=== PATIENT | female | born 1950 | race African-American/Black ===

== ENCOUNTER 2023-01-21 10:31 | Inpatient (IN) | payer OTHER ==
[2023-01-21 12:20] LABS: BASO % 1.3 % (0-2.0); EOS % 5.7 % (0-4.5); HEMATOCRIT 19.8 % (32.4-45.2); LYMPH % 29.7 % (8-40); MCH 24.3 pg (25.7-33.7); MCHC 33.5 g/dl (32.0-36.0); MEAN CELL VOLUME 72.4 fl (80-96); MEAN PLT VOLUME 6.3 fl (7.5-11.1); MONO % 8.1 % (3.8-10.2); NEUT % 55.2 % (42.8-82.8); PLATELET COUNT 223 10^3/uL (134-434); RBC 2.73 M/mm3 (3.60-5.2); RDW 20.7 % (11.6-15.6)
[2023-01-21 12:28] LABS: INR 1.1 (0.83-1.09); PROTHROMBIN TIME (PATIENT) 12.7 SEC (9.7-13.0)
[2023-01-21 12:30] LABS: HEMOGLOBIN 6.6 GM/dL (10.7-15.3)
[2023-01-21 12:41] LABS: CHLORIDE 114 mmol/L (98-107); POTASSIUM 5.6 mmol/L (3.5-5.1); SODIUM 141 mmol/L (136-145)
[2023-01-21 12:43] LABS: CALCIUM 8.2 mg/dL (8.5-10.1)
[2023-01-21 12:44] LABS: ALBUMIN 3.2 g/dl (3.4-5.0); ANION GAP 8 mmol/L (4-13); BLOOD UREA NITROGEN 65.1 mg/dL (7-18); CO2 19 mmol/L (21-32); GLUCOSE,RANDOM 150 mg/dL (74-106)
[2023-01-21 12:47] LABS: SGOT/AST 21 U/L (15-37); SGPT/ALT 23 U/L (13-61)
[2023-01-21 12:48] LABS: BILIRUBIN,TOTAL 0.4 mg/dL (0.2-1); TOT PROT 6.4 g/dl (6.4-8.2)
[2023-01-21 12:50] LABS: ALK PHOS 55 U/L (45-117); CREATININE 7.5 mg/dL (0.55-1.3)
[2023-01-21 13:53] LABS: ANISOCYTOSIS 2+
[2023-01-21] MEDS ORDERED: SODIUM ZIRCONIUM CYCLOSILICATE (LOKELMA) 5 GM PACKET PO ONE (14:55)
[2023-01-21 15:14] LABS: IRON SERUM 52 ug/dL (50-175); TOTAL IRON BINDING CAPACITY 289 ug/dL (250-450)
[2023-01-21] MEDS: cloNIDine HCL 0.1 MG TABLET PO SCH ×2 (15:23→21:37)
[2023-01-21] MEDS: amLODIPine BESYLATE 10 MG TABLET (FP) PO SCH (15:24)
[2023-01-21] MEDS: SODIUM BICARBONATE 650 MG TABLET PO SCH (21:36)
[2023-01-21] MEDS: GABAPENTIN 300 MG CAPSULE PO SCH (21:36)
[2023-01-21] MEDS: ROSUVASTATIN CA 10 MG TABLET PO SCH (21:36)
[2023-01-21] MEDS: HEPARIN NA (PORCINE) 5,000 UNITS/ML 1ML VIAL SQ SCH (21:37)
[2023-01-21] MEDS ORDERED: ROSUVASTATIN CA 40 MG TABLET PO SCH ×2 (22:00)
[2023-01-22] MEDS: GABAPENTIN 300 MG CAPSULE PO SCH ×3 (06:19→22:49)
[2023-01-22 08:24] LABS: EOS % 5.4 % (0-4.5); HEMATOCRIT 20.1 % (32.4-45.2); LYMPH % 40.1 % (8-40); MCH 24.8 pg (25.7-33.7); MCHC 33.6 g/dl (32.0-36.0); MEAN CELL VOLUME 73.9 fl (80-96); MEAN PLT VOLUME 6.5 fl (7.5-11.1); NEUT % 44.5 % (42.8-82.8); PLATELET COUNT 183 10^3/uL (134-434); RBC 2.72 M/mm3 (3.60-5.2); RDW 21.4 % (11.6-15.6); WHITE BLOOD COUNT 4.5 K/mm3 (4.0-10.0)
[2023-01-22 08:32] LABS: POTASSIUM 5.8 mmol/L (3.5-5.1)
[2023-01-22 08:38] LABS: HEMOGLOBIN 6.7 GM/dL (10.7-15.3)
[2023-01-22 08:42] LABS: BLOOD UREA NITROGEN 65.9 mg/dL (7-18)
[2023-01-22 08:43] LABS: CALCIUM 8.3 mg/dL (8.5-10.1)
[2023-01-22 08:46] LABS: CREATININE 7.4 mg/dL (0.55-1.3)
[2023-01-22] MEDS: amLODIPine BESYLATE 10 MG TABLET (FP) PO SCH (09:34)
[2023-01-22] MEDS: HEPARIN NA (PORCINE) 5,000 UNITS/ML 1ML VIAL SQ SCH ×2 (09:34→22:49)
[2023-01-22] MEDS: cloNIDine HCL 0.1 MG TABLET PO SCH ×2 (09:34→22:49)
[2023-01-22] MEDS: SODIUM BICARBONATE 650 MG TABLET PO SCH ×2 (09:34→22:49)
[2023-01-22 13:30] LABS: PHOSPHOROUS 5.9 mg/dL (2.5-4.9)
[2023-01-22] MEDS: SODIUM ZIRCONIUM CYCLOSILICATE (LOKELMA) 5 GM PACKET PO SCH (13:31)
[2023-01-22] MEDS ORDERED: INSULIN (NOVOLOG) ASPART 100 UNITS/ML 10ML VIAL ONE (21:53)
[2023-01-22] MEDS: ROSUVASTATIN CA 10 MG TABLET PO SCH (22:49)
[2023-01-22] MEDS: FERROUS SO4 325 MG TABLET (FP) PO SCH (22:49)
[2023-01-22] MEDS: INSULIN SLIDING SCALE (NOVOLOG) 1 VIAL SQ SCH (22:50)
[2023-01-23] MEDS: GABAPENTIN 300 MG CAPSULE PO SCH ×4 (06:35→21:29)
[2023-01-23] MEDS: INSULIN SLIDING SCALE (NOVOLOG) 1 VIAL SQ SCH ×4 (07:22→22:08)
[2023-01-23 09:04] LABS: BASO % 1.3 % (0-2.0); EOS % 7.8 % (0-4.5); HEMATOCRIT 25.6 % (32.4-45.2); HEMOGLOBIN 8.3 GM/dL (10.7-15.3); LYMPH % 38.6 % (8-40); MCH 24.5 pg (25.7-33.7); MCHC 32.3 g/dl (32.0-36.0); MEAN CELL VOLUME 75.8 fl (80-96); MEAN PLT VOLUME 6.7 fl (7.5-11.1); MONO % 8.8 % (3.8-10.2); NEUT % 43.5 % (42.8-82.8); PLATELET COUNT 198 10^3/uL (134-434); RBC 3.37 M/mm3 (3.60-5.2); RDW 20.9 % (11.6-15.6); WHITE BLOOD COUNT 4.4 K/mm3 (4.0-10.0)
[2023-01-23] MEDS: SODIUM ZIRCONIUM CYCLOSILICATE (LOKELMA) 5 GM PACKET PO SCH (09:33)
[2023-01-23] MEDS: SODIUM BICARBONATE 650 MG TABLET PO SCH ×2 (09:34→21:29)
[2023-01-23] MEDS: FERROUS SO4 325 MG TABLET (FP) PO SCH ×2 (09:34→21:29)
[2023-01-23] MEDS: HEPARIN NA (PORCINE) 5,000 UNITS/ML 1ML VIAL SQ SCH ×2 (09:34→21:29)
[2023-01-23] MEDS: cloNIDine HCL 0.1 MG TABLET PO SCH ×2 (09:34→21:29)
[2023-01-23] MEDS: amLODIPine BESYLATE 10 MG TABLET (FP) PO SCH (09:34)
[2023-01-23 09:41] LABS: POTASSIUM 5.5 mmol/L (3.5-5.1)
[2023-01-23 09:54] LABS: ALBUMIN 3.1 g/dl (3.4-5.0); BLOOD UREA NITROGEN 67.4 mg/dL (7-18); CALCIUM 8.2 mg/dL (8.5-10.1); MAGNESIUM 2.4 mg/dL (1.8-2.4)
[2023-01-23 09:57] LABS: CREATININE 7.3 mg/dL (0.55-1.3)
[2023-01-23 09:58] LABS: BILIRUBIN,TOTAL 0.5 mg/dL (0.2-1); TOT PROT 6.2 g/dl (6.4-8.2)
[2023-01-23] MEDS ORDERED: EPOETIN ALFA-EPBX 10,000 UNIT/ML VIAL SQ ONE (16:12)
[2023-01-23] MEDS: ROSUVASTATIN CA 10 MG TABLET PO SCH (21:28)
[2023-01-24] MEDS: SODIUM BICARBONATE 650 MG TABLET PO SCH ×3 (06:29→23:00)
[2023-01-24] MEDS: GABAPENTIN 300 MG CAPSULE PO SCH ×3 (06:29→23:01)
[2023-01-24] MEDS: INSULIN SLIDING SCALE (NOVOLOG) 1 VIAL SQ SCH ×4 (06:39→23:00)
[2023-01-24 09:36] LABS: BASO % 0.8 % (0-2.0); EOS % 7.5 % (0-4.5); HEMATOCRIT 24.7 % (32.4-45.2); LYMPH % 30.6 % (8-40); MCH 24.8 pg (25.7-33.7); MCHC 32.6 g/dl (32.0-36.0); MEAN CELL VOLUME 76.2 fl (80-96); MONO % 8.2 % (3.8-10.2); NEUT % 52.9 % (42.8-82.8); PLATELET COUNT 201 10^3/uL (134-434); RBC 3.24 M/mm3 (3.60-5.2); RDW 20.8 % (11.6-15.6); WHITE BLOOD COUNT 4.3 K/mm3 (4.0-10.0)
[2023-01-24 09:50] LABS: CHLORIDE 107 mmol/L (98-107); POTASSIUM 5.3 mmol/L (3.5-5.1); SODIUM 137 mmol/L (136-145)
[2023-01-24 09:58] LABS: ALBUMIN 3.1 g/dl (3.4-5.0); ALK PHOS 51 U/L (45-117); TOT PROT 6.1 g/dl (6.4-8.2)
[2023-01-24 09:59] LABS: CALCIUM 7.9 mg/dL (8.5-10.1)
[2023-01-24 10:00] LABS: ANION GAP 9 mmol/L (4-13); BLOOD UREA NITROGEN 71.6 mg/dL (7-18); CO2 21 mmol/L (21-32); GLUCOSE,RANDOM 253 mg/dL (74-106); MAGNESIUM 2.4 mg/dL (1.8-2.4); SGOT/AST 17 U/L (15-37)
[2023-01-24 10:01] LABS: SGPT/ALT 22 U/L (13-61)
[2023-01-24 10:02] LABS: BILIRUBIN,TOTAL 0.5 mg/dL (0.2-1); CREATININE 7.5 mg/dL (0.55-1.3)
[2023-01-24] MEDS: HEPARIN NA (PORCINE) 5,000 UNITS/ML 1ML VIAL SQ SCH ×2 (11:10→23:01)
[2023-01-24] MEDS: amLODIPine BESYLATE 10 MG TABLET (FP) PO SCH (11:11)
[2023-01-24] MEDS: SODIUM ZIRCONIUM CYCLOSILICATE (LOKELMA) 5 GM PACKET PO SCH (11:11)
[2023-01-24] MEDS: cloNIDine HCL 0.1 MG TABLET PO SCH ×2 (11:11→23:00)
[2023-01-24] MEDS: FERROUS SO4 325 MG TABLET (FP) PO SCH ×2 (11:11→23:00)
[2023-01-24] MEDS ORDERED: INSULIN (NOVOLOG) ASPART 100 UNITS/ML 10ML VIAL ONE ×2 (11:32→22:20)
[2023-01-24] MEDS: ROSUVASTATIN CA 10 MG TABLET PO SCH (23:00)
[2023-01-25] MEDS: SODIUM BICARBONATE 650 MG TABLET PO SCH ×3 (06:39→22:03)
[2023-01-25] MEDS: GABAPENTIN 300 MG CAPSULE PO SCH ×3 (06:40→22:03)
[2023-01-25] MEDS: INSULIN SLIDING SCALE (NOVOLOG) 1 VIAL SQ SCH ×4 (06:51→22:03)
[2023-01-25 09:29] LABS: BASO % 1.1 % (0-2.0); EOS % 6.2 % (0-4.5); HEMATOCRIT 23.2 % (32.4-45.2); HEMOGLOBIN 7.7 GM/dL (10.7-15.3); LYMPH % 34.9 % (8-40); MCHC 33.4 g/dl (32.0-36.0); MEAN CELL VOLUME 74.9 fl (80-96); MEAN PLT VOLUME 7.1 fl (7.5-11.1); MONO % 9.3 % (3.8-10.2); NEUT % 48.5 % (42.8-82.8); PLATELET COUNT 199 10^3/uL (134-434); RDW 21.2 % (11.6-15.6)
[2023-01-25 09:58] LABS: CHLORIDE 108 mmol/L (98-107); SODIUM 139 mmol/L (136-145)
[2023-01-25] MEDS: cloNIDine HCL 0.1 MG TABLET PO SCH ×2 (10:40→22:03)
[2023-01-25] MEDS: SODIUM ZIRCONIUM CYCLOSILICATE (LOKELMA) 5 GM PACKET PO SCH ×2 (10:40→22:02)
[2023-01-25] MEDS: FERROUS SO4 325 MG TABLET (FP) PO SCH ×2 (10:41→22:03)
[2023-01-25] MEDS: HEPARIN NA (PORCINE) 5,000 UNITS/ML 1ML VIAL SQ SCH (10:41)
[2023-01-25] MEDS: amLODIPine BESYLATE 10 MG TABLET (FP) PO SCH (10:41)
[2023-01-25 10:50] LABS: ANION GAP 12 mmol/L (4-13); CO2 19 mmol/L (21-32)
[2023-01-25 10:53] LABS: BLOOD UREA NITROGEN 75.1 mg/dL (7-18); CALCIUM 8.1 mg/dL (8.5-10.1); GLUCOSE,RANDOM 115 mg/dL (74-106); MAGNESIUM 2.6 mg/dL (1.8-2.4)
[2023-01-25 10:54] LABS: SGPT/ALT 22 U/L (13-61)
[2023-01-25 10:55] LABS: BILIRUBIN,TOTAL 0.4 mg/dL (0.2-1); TOT PROT 5.8 g/dl (6.4-8.2)
[2023-01-25 10:56] LABS: ALK PHOS 49 U/L (45-117); CREATININE 7.5 mg/dL (0.55-1.3); SGOT/AST 15 U/L (15-37)
[2023-01-25 16:25] LABS: ANISOCYTOSIS 2+; MACROCYTOSIS 0; OVALOCYTE 1+; TARGET CELLS 0
[2023-01-25] MEDS ORDERED: POLYETHYLENE GLYCOL (HEALTHYLAX) 3350 17 GM PACKET PO ONE (16:45)
[2023-01-25] MEDS ORDERED: BISACODYL 5 MG TABLET.DR (FP) PO PRN (16:46)
[2023-01-25] MEDS ORDERED: DOCUSATE SODIUM 100 MG CAPSULE (FP) PO SCH (22:00)
[2023-01-25] MEDS: POLYETHYLENE GLYCOL (HEALTHYLAX) 3350 17 GM PACKET PO SCH (22:02)
[2023-01-25] MEDS: ROSUVASTATIN CA 10 MG TABLET PO SCH (22:03)
[2023-01-26] MEDS: SODIUM BICARBONATE 650 MG TABLET PO SCH ×3 (05:42→22:14)
[2023-01-26] MEDS: GABAPENTIN 300 MG CAPSULE PO SCH ×3 (05:42→22:13)
[2023-01-26] MEDS: INSULIN SLIDING SCALE (NOVOLOG) 1 VIAL SQ SCH ×4 (06:08→22:21)
[2023-01-26 09:21] LABS: BASO % 0.9 % (0-2.0); EOS % 5.3 % (0-4.5); HEMATOCRIT 26.9 % (32.4-45.2); HEMOGLOBIN 9.1 GM/dL (10.7-15.3); LYMPH % 27.6 % (8-40); MCH 25.8 pg (25.7-33.7); MONO % 10.3 % (3.8-10.2); NEUT % 55.9 % (42.8-82.8); PLATELET COUNT 190 10^3/uL (134-434); RBC 3.53 M/mm3 (3.60-5.2); RDW 20.2 % (11.6-15.6); WHITE BLOOD COUNT 5.3 K/mm3 (4.0-10.0)
[2023-01-26 09:50] LABS: CHLORIDE 112 mmol/L (98-107); POTASSIUM 4.9 mmol/L (3.5-5.1); SODIUM 131 mmol/L (136-145)
[2023-01-26 09:59] LABS: ALBUMIN 2.9 g/dl (3.4-5.0); ANION GAP -2 mmol/L (4-13); BLOOD UREA NITROGEN 74.9 mg/dL (7-18); CO2 21 mmol/L (21-32); GLUCOSE,RANDOM 112 mg/dL (74-106); MAGNESIUM 2.5 mg/dL (1.8-2.4)
[2023-01-26 10:02] LABS: PHOSPHOROUS 6.7 mg/dL (2.5-4.9); SGOT/AST 23 U/L (15-37); SGPT/ALT 25 U/L (13-61)
[2023-01-26 10:04] LABS: BILIRUBIN,TOTAL 0.7 mg/dL (0.2-1); TOT PROT 5.8 g/dl (6.4-8.2)
[2023-01-26 10:05] LABS: ALK PHOS 48 U/L (45-117)
[2023-01-26 10:06] LABS: CREATININE 7.5 mg/dL (0.55-1.3)
[2023-01-26] MEDS: SODIUM ZIRCONIUM CYCLOSILICATE (LOKELMA) 5 GM PACKET PO SCH (11:50)
[2023-01-26] MEDS: POLYETHYLENE GLYCOL (HEALTHYLAX) 3350 17 GM PACKET PO SCH ×2 (11:50→22:15)
[2023-01-26] MEDS: cloNIDine HCL 0.1 MG TABLET PO SCH ×2 (11:51→22:12)
[2023-01-26] MEDS: amLODIPine BESYLATE 10 MG TABLET (FP) PO SCH (11:51)
[2023-01-26] MEDS: FERROUS SO4 325 MG TABLET (FP) PO SCH ×2 (11:51→22:14)
[2023-01-26 12:03] VITALS: BMI 34.0
[2023-01-26] MEDS ORDERED: LIDOCAINE HCL 1%, 10 MG/ML (20ML VIAL) ONE (15:09)
[2023-01-26] MEDS ORDERED: HEPARIN NA (PORCINE) 5,000 UNITS/ML 1ML VIAL ONE (15:09)
[2023-01-26] MEDS ORDERED: FENTANYL CITRATE/PF 50 MCG/ML VIAL ONE (17:40)
[2023-01-26] MEDS ORDERED: PROPOFOL 20 ML ONE (17:40)
[2023-01-26] MEDS ORDERED: LIDOCAINE HCL/PF 2% SDV 5ML VIAL ONE (17:40)
[2023-01-26] MEDS ORDERED: ceFAZolin SODIUM 1 GM VIAL ONE (17:41)
[2023-01-26] MEDS ORDERED: MIDAZOLAM HCL 2 MG/2 ML SINGLE DOSE VIAL ONE (17:41)
[2023-01-26] MEDS ORDERED: SODIUM CHLORIDE 0.9% P/F 10 ML VIAL IJ ONE ×2 (17:41→18:10)
[2023-01-26] MEDS ORDERED: ceFAZolin SODIUM 1 GM VIAL IVPB ONE (17:55)
[2023-01-26] MEDS ORDERED: ONDANSETRON 4 MG/2 ML VIAL IVPUSH PRN ×2 (18:22→20:46)
[2023-01-26] MEDS ORDERED: POVIDONE-IODINE OINTMENT 10% - 28.4 GM TUBE ONE (18:28)
[2023-01-26] MEDS ORDERED: SODIUM CHLORIDE 1,000 ML IV SCH ×2 (18:30→20:46)
[2023-01-26] MEDS ORDERED: BISACODYL 5 MG TABLET.DR (FP) PO PRN (20:46)
[2023-01-26] MEDS ORDERED: INSULIN (NOVOLOG) ASPART 100 UNITS/ML 10ML VIAL ONE (21:56)
[2023-01-26] MEDS ORDERED: DOCUSATE SODIUM 100 MG CAPSULE (FP) PO SCH (22:00)
[2023-01-26] MEDS ORDERED: ROSUVASTATIN CA 10 MG TABLET PO SCH (22:00)
[2023-01-26] MEDS: HEPARIN NA (PORCINE) 5,000 UNITS/ML 1ML VIAL SQ SCH (22:15)
[2023-01-26] MEDS: SODIUM ZIRCONIUM CYCLOSILICATE (LOKELMA) 10 GM PACKET PO SCH (22:15)
[2023-01-27] MEDS ORDERED: ACETAMINOPHEN 1000 MG/100 ML BAG IVPB ONE (01:34)
[2023-01-27] MEDS ORDERED: INSULIN (NOVOLOG) ASPART 100 UNITS/ML 10ML VIAL ONE ×2 (05:49→12:04)
[2023-01-27] MEDS: GABAPENTIN 300 MG CAPSULE PO SCH ×2 (06:09→15:32)
[2023-01-27] MEDS: SODIUM BICARBONATE 650 MG TABLET PO SCH ×2 (06:09→15:32)
[2023-01-27] MEDS: INSULIN SLIDING SCALE (NOVOLOG) 1 VIAL SQ SCH ×3 (06:09→17:57)
[2023-01-27] MEDS: HEPARIN NA (PORCINE) 5,000 UNITS/ML 1ML VIAL SQ SCH (09:31)
[2023-01-27] MEDS: SODIUM ZIRCONIUM CYCLOSILICATE (LOKELMA) 10 GM PACKET PO SCH (09:31)
[2023-01-27] MEDS: POLYETHYLENE GLYCOL (HEALTHYLAX) 3350 17 GM PACKET PO SCH (09:32)
[2023-01-27] MEDS: cloNIDine HCL 0.1 MG TABLET PO SCH (09:32)
[2023-01-27] MEDS: FERROUS SO4 325 MG TABLET (FP) PO SCH (09:32)
[2023-01-27] MEDS ORDERED: amLODIPine BESYLATE 10 MG TABLET (FP) PO SCH (10:00)
[2023-01-27 15:13] VITALS: PULSE 50
[2023-01-27] MEDS ORDERED: EPOETIN ALFA-EPBX 10,000 UNIT/ML VIAL SQ ONE (17:00)
[2023-01-27 18:35] VITALS: BP 144/68; RESP 18; TEMP 98
== END 2023-01-27 20:03 | disposition home or self-care (01) | DRG 674 ==
LOC: JER 10:31 → JERBED 13:55 → J8W 14:25 → OBSVTOIN 01-23 09:31
PROVIDERS: ADMIT Internal Medicine; ATTEND Internal Medicine
PROC: 30233N1 Transfusion of Nonautologous Red Blood Cells into Peripheral Vein, Percutaneous Approach (ICD-10-PCS; principal; 2023-01-21)
PROC: 031809D Bypass Left Brachial Artery to Upper Arm Vein with Autologous Venous Tissue, Open Approach (ICD-10-PCS; 2023-01-26)
DX: I12.0 Hypertensive chronic kidney disease with stage 5 chronic kidney disease or end stage renal disease (principal); E87.1 Hypo-osmolality and hyponatremia; E87.20 Acidosis, unspecified; N18.5 Chronic kidney disease, stage 5; E11.22 Type 2 diabetes mellitus with diabetic chronic kidney disease; I16.0 Hypertensive urgency; E66.9 Obesity, unspecified; Z68.34 Body mass index [BMI] 34.0-34.9, adult; K59.00 Constipation, unspecified; E87.5 Hyperkalemia; R06.09 Other forms of dyspnea; E78.5 Hyperlipidemia, unspecified; D63.1 Anemia in chronic kidney disease
CPT/HCPCS: 36415; 36430; 73090-TC-LT-FY; 80048; 80053; 82272; 82728; 82962; 83036; 83540; 83550; 83735; 84100; 84466; 85025; 85610; 86704; 86708; 86803; 86850; 86900; 86901; 86922; 87340; 87517; 93005; 93010; 93970-TC; 93986; 94760; 99285-25; G0378; J1644; P9058; Q5106

== ENCOUNTER 2023-02-01 10:07 | Inpatient (IN) | payer OTHER ==
[2023-02-01] MEDS ORDERED: SODIUM CHLORIDE 0.9% 500 ML INFUS.BAG IV ONE (13:14)
[2023-02-01 14:19] LABS: BASO % 1.4 % (0-2.0); EOS % 1.5 % (0-4.5); HEMOGLOBIN 9.6 GM/dL (10.7-15.3); LYMPH % 14.3 % (8-40); MCH 25.9 pg (25.7-33.7); MEAN CELL VOLUME 78.6 fl (80-96); MEAN PLT VOLUME 7.4 fl (7.5-11.1); MONO % 4.9 % (3.8-10.2); NEUT % 77.9 % (42.8-82.8); PLATELET COUNT 244 10^3/uL (134-434); RDW 21.5 % (11.6-15.6); WHITE BLOOD COUNT 6.6 K/mm3 (4.0-10.0)
[2023-02-01 14:25] LABS: VENOUS BASE EXCESS -5.7 mmol/L (-2-2); VENOUS O2 SATURATION 89.2 % (70-80); VENOUS PCO2 32.8 mmHg (38-52); VENOUS PH 7.374 (7.310-7.410)
[2023-02-01 14:28] LABS: INR 1.08 (0.83-1.09); PROTHROMBIN TIME (PATIENT) 12.5 SEC (9.7-13.0)
[2023-02-01 14:31] LABS: ACTIVATED PTT 32.8 SECONDS (25.2-36.5)
[2023-02-01 14:55] LABS: CHLORIDE 104 mmol/L (98-107); SODIUM 136 mmol/L (136-145)
[2023-02-01 14:57] LABS: MAGNESIUM 2.7 mg/dL (1.8-2.4)
[2023-02-01 14:58] LABS: ALBUMIN 3.3 g/dl (3.4-5.0); CALCIUM 8.6 mg/dL (8.5-10.1); CO2 21 mmol/L (21-32); GLUCOSE,RANDOM 193 mg/dL (74-106)
[2023-02-01 15:00] LABS: SGPT/ALT 26 U/L (13-61)
[2023-02-01 15:01] LABS: CREATININE 7.3 mg/dL (0.55-1.3); PHOSPHOROUS 5.6 mg/dL (2.5-4.9); SGOT/AST 72 U/L (15-37)
[2023-02-01 15:02] LABS: TOT PROT 7.3 g/dl (6.4-8.2)
[2023-02-01 15:03] LABS: BILIRUBIN,TOTAL 0.7 mg/dL (0.2-1)
[2023-02-01 15:04] LABS: ALK PHOS 62 U/L (45-117)
[2023-02-01 15:22] LABS: ANION GAP 11 mmol/L (4-13); LIPASE 1700 U/L (73-393); POTASSIUM 6.6 mmol/L (3.5-5.1)
[2023-02-01 15:30] LABS: ANISOCYTOSIS 2+
[2023-02-01 16:28] LABS: POTASSIUM 4.8 mmol/L (3.5-5.1)
[2023-02-01 16:29] LABS: CALCIUM 8.7 mg/dL (8.5-10.1)
[2023-02-01 16:30] LABS: BLOOD UREA NITROGEN 76.5 mg/dL (7-18)
[2023-02-01 16:33] LABS: CREATININE 7.3 mg/dL (0.55-1.3)
[2023-02-01] MEDS ORDERED: hydrALAZINE HCL 50 MG TABLET (FP) PO ONE (17:50)
[2023-02-01] MEDS ORDERED: FUROSEMIDE 40 MG/4 ML INJECTABLE VIAL IVPUSH ONE (17:54)
[2023-02-01] MEDS ORDERED: hydrALAZINE HCL 50 MG TABLET (FP) ONE (17:55)
[2023-02-01] MEDS ORDERED: hydrALAZINE HCL 20 MG/ML VIAL IVPUSH PRN (18:02)
[2023-02-01] MEDS ORDERED: FUROSEMIDE 40 MG/4 ML INJECTABLE VIAL ONE (18:06)
[2023-02-01 19:00] LABS: EPI CELLS 15 /uL (0-25.1); HYALINE CASTS 1 /uL (0-3.1); URINE APPEARANCE CLEAR; URINE BACTERIA 48 /uL (0-1359); URINE BILIRUBIN NEGATIVE (NEGATIVE); URINE COLOR YELLOW; URINE GLUCOSE (UA) TRACE (NEGATIVE); URINE KETONE NEGATIVE (NEGATIVE); URINE LEUK ESTERASE NEGATIVE (NEGATIVE); URINE NITRITE NEGATIVE (NEGATIVE); URINE PROTEIN 3+ (NEGATIVE); URINE RBC 29 /uL (0-23.9); URINE UROBILINOGEN 0.2 mg/dL (0.2-1.0); URINE WBC 25 /uL (0-25.8)
[2023-02-01] MEDS ORDERED: ROSUVASTATIN CA 40 MG TABLET PO SCH (22:00)
[2023-02-01] MEDS ORDERED: PATIENT'S OWN MEDICATION (NON-FORMULARY) (Gabapentin [Gabapentin] 600 MG Tablet) PO SCH (22:00)
[2023-02-01] MEDS: GABAPENTIN 300 MG CAPSULE PO SCH (22:19)
[2023-02-01] MEDS: SODIUM BICARBONATE 650 MG TABLET PO SCH (22:20)
[2023-02-01] MEDS: INSULIN SLIDING SCALE (NOVOLOG) 1 VIAL SQ SCH (22:20)
[2023-02-01] MEDS: HEPARIN NA (PORCINE) 5,000 UNITS/ML 1ML VIAL SQ SCH (22:20)
[2023-02-01] MEDS: cloNIDine HCL 0.1 MG TABLET PO SCH (22:20)
[2023-02-02] MEDS ORDERED: hydrALAZINE HCL 20 MG/ML VIAL IVPUSH PRN (01:35)
[2023-02-02] MEDS: SODIUM BICARBONATE 650 MG TABLET PO SCH ×3 (06:03→22:44)
[2023-02-02] MEDS: GABAPENTIN 300 MG CAPSULE PO SCH ×3 (06:03→22:44)
[2023-02-02] MEDS: INSULIN SLIDING SCALE (NOVOLOG) 1 VIAL SQ SCH ×4 (06:04→23:04)
[2023-02-02 06:58] LABS: BASO % 1.4 % (0-2.0); EOS % 0.9 % (0-4.5); HEMATOCRIT 27.7 % (32.4-45.2); HEMOGLOBIN 9.3 GM/dL (10.7-15.3); LYMPH % 15.2 % (8-40); MCH 26.1 pg (25.7-33.7); MCHC 33.5 g/dl (32.0-36.0); MEAN CELL VOLUME 77.9 fl (80-96); MONO % 7.9 % (3.8-10.2); NEUT % 74.6 % (42.8-82.8); PLATELET COUNT 233 10^3/uL (134-434); RBC 3.56 M/mm3 (3.60-5.2); RDW 21.4 % (11.6-15.6); WHITE BLOOD COUNT 5.3 K/mm3 (4.0-10.0)
[2023-02-02 07:21] LABS: CHLORIDE 107 mmol/L (98-107); POTASSIUM 4.7 mmol/L (3.5-5.1); SODIUM 139 mmol/L (136-145)
[2023-02-02 07:24] LABS: ALBUMIN 3.2 g/dl (3.4-5.0); ANION GAP 10 mmol/L (4-13); BLOOD UREA NITROGEN 74.6 mg/dL (7-18); CALCIUM 8.6 mg/dL (8.5-10.1); CO2 22 mmol/L (21-32); GLUCOSE,RANDOM 141 mg/dL (74-106); MAGNESIUM 2.7 mg/dL (1.8-2.4)
[2023-02-02 07:27] LABS: SGOT/AST 18 U/L (15-37); SGPT/ALT 17 U/L (13-61)
[2023-02-02 07:29] LABS: BILIRUBIN,TOTAL 0.8 mg/dL (0.2-1); TOT PROT 6.5 g/dl (6.4-8.2)
[2023-02-02 07:30] LABS: ALK PHOS 58 U/L (45-117)
[2023-02-02 07:55] LABS: CREATININE 7.6 mg/dL (0.55-1.3)
[2023-02-02] MEDS: HEPARIN NA (PORCINE) 5,000 UNITS/ML 1ML VIAL SQ SCH ×2 (12:11→22:44)
[2023-02-02] MEDS: cloNIDine HCL 0.1 MG TABLET PO SCH ×2 (12:12→22:44)
[2023-02-02] MEDS: amLODIPine BESYLATE 10 MG TABLET (FP) PO SCH (12:12)
[2023-02-02] MEDS: FERROUS SO4 325 MG TABLET (FP) PO SCH (12:12)
[2023-02-02] MEDS: SODIUM ZIRCONIUM CYCLOSILICATE (LOKELMA) 5 GM PACKET PO SCH (12:12)
[2023-02-02] MEDS: FUROSEMIDE 100 MG/10 ML INJECTABLE VIAL IVPB ONE ×3 (12:15→22:56)
[2023-02-02] MEDS: EPOETIN ALFA-EPBX 10,000 UNIT/ML VIAL SQ ONE ×2 (18:42→19:38)
[2023-02-02] MEDS ORDERED: ROSUVASTATIN CA 40 MG TABLET PO SCH (22:00)
[2023-02-02] MEDS: ROSUVASTATIN CA 10 MG TABLET PO SCH (22:44)
[2023-02-02] MEDS ORDERED: FUROSEMIDE 40 MG/4 ML INJECTABLE VIAL IVPB ONE (23:00)
[2023-02-03] MEDS: INSULIN SLIDING SCALE (NOVOLOG) 1 VIAL SQ SCH ×4 (06:29→21:37)
[2023-02-03] MEDS: SODIUM BICARBONATE 650 MG TABLET PO SCH ×3 (06:31→21:38)
[2023-02-03] MEDS: HEPARIN NA (PORCINE) 5,000 UNITS/ML 1ML VIAL SQ SCH ×3 (06:31→21:38)
[2023-02-03 08:01] LABS: BASO % 1.4 % (0-2.0); EOS % 6.4 % (0-4.5); HEMATOCRIT 24.8 % (32.4-45.2); HEMOGLOBIN 8.5 GM/dL (10.7-15.3); LYMPH % 24.5 % (8-40); MCH 26.9 pg (25.7-33.7); MCHC 34.2 g/dl (32.0-36.0); MEAN CELL VOLUME 78.7 fl (80-96); MEAN PLT VOLUME 7.3 fl (7.5-11.1); MONO % 9.3 % (3.8-10.2); NEUT % 58.4 % (42.8-82.8); PLATELET COUNT 219 10^3/uL (134-434); RBC 3.15 M/mm3 (3.60-5.2); RDW 21.1 % (11.6-15.6); WHITE BLOOD COUNT 5.5 K/mm3 (4.0-10.0)
[2023-02-03 08:13] LABS: POTASSIUM 4.4 mmol/L (3.5-5.1)
[2023-02-03 08:16] LABS: CALCIUM 8.2 mg/dL (8.5-10.1)
[2023-02-03 08:17] LABS: BLOOD UREA NITROGEN 72.4 mg/dL (7-18); MAGNESIUM 2.5 mg/dL (1.8-2.4)
[2023-02-03 08:20] LABS: CREATININE 7.3 mg/dL (0.55-1.3); PHOSPHOROUS 5.4 mg/dL (2.5-4.9)
[2023-02-03 08:22] LABS: TOT PROT 5.8 g/dl (6.4-8.2)
[2023-02-03] MEDS: FUROSEMIDE 40 MG/4 ML INJECTABLE VIAL IVPUSH SCH (10:21)
[2023-02-03] MEDS: cloNIDine HCL 0.1 MG TABLET PO SCH ×2 (10:22→21:38)
[2023-02-03] MEDS: amLODIPine BESYLATE 10 MG TABLET (FP) PO SCH (10:22)
[2023-02-03] MEDS: SODIUM ZIRCONIUM CYCLOSILICATE (LOKELMA) 5 GM PACKET PO SCH (10:22)
[2023-02-03] MEDS: FERROUS SO4 325 MG TABLET (FP) PO SCH (10:22)
[2023-02-03] MEDS ORDERED: INSULIN (NOVOLOG) ASPART 100 UNITS/ML 10ML VIAL ONE ×2 (11:47→17:07)
[2023-02-03] MEDS: ROSUVASTATIN CA 10 MG TABLET PO SCH (21:38)
[2023-02-03] MEDS: GABAPENTIN 300 MG CAPSULE PO SCH (21:38)
[2023-02-04] MEDS: METOPROLOL TARTRATE 50 MG TABLET (FP) PO SCH ×3 (03:13→21:12)
[2023-02-04] MEDS: SODIUM BICARBONATE 650 MG TABLET PO SCH ×3 (05:55→21:13)
[2023-02-04] MEDS: HEPARIN NA (PORCINE) 5,000 UNITS/ML 1ML VIAL SQ SCH (05:55)
[2023-02-04] MEDS: INSULIN SLIDING SCALE (NOVOLOG) 1 VIAL SQ SCH ×4 (06:01→21:14)
[2023-02-04 07:10] LABS: HEMATOCRIT 26.9 % (32.4-45.2); LYMPH % 29.4 % (8-40); MCH 26.3 pg (25.7-33.7); MCHC 33.6 g/dl (32.0-36.0); MEAN CELL VOLUME 78.4 fl (80-96); MEAN PLT VOLUME 7.1 fl (7.5-11.1); MONO % 12.1 % (3.8-10.2); NEUT % 49.5 % (42.8-82.8); PLATELET COUNT 226 10^3/uL (134-434); RBC 3.43 M/mm3 (3.60-5.2); RDW 21.2 % (11.6-15.6); WHITE BLOOD COUNT 5.4 K/mm3 (4.0-10.0)
[2023-02-04 07:19] LABS: CHLORIDE 106 mmol/L (98-107); POTASSIUM 4.2 mmol/L (3.5-5.1); SODIUM 138 mmol/L (136-145)
[2023-02-04 07:24] LABS: ALBUMIN 2.7 g/dl (3.4-5.0); ANION GAP 8 mmol/L (4-13); BLOOD UREA NITROGEN 74.9 mg/dL (7-18); CO2 24 mmol/L (21-32); GLUCOSE,RANDOM 142 mg/dL (74-106); MAGNESIUM 2.4 mg/dL (1.8-2.4)
[2023-02-04 07:27] LABS: BILIRUBIN,TOTAL 0.9 mg/dL (0.2-1); PHOSPHOROUS 5.7 mg/dL (2.5-4.9); SGOT/AST 12 U/L (15-37); SGPT/ALT 14 U/L (13-61)
[2023-02-04 07:28] LABS: TOT PROT 5.6 g/dl (6.4-8.2)
[2023-02-04 07:29] LABS: ALK PHOS 52 U/L (45-117)
[2023-02-04 07:32] LABS: CREATININE 7.5 mg/dL (0.55-1.3)
[2023-02-04] MEDS: amLODIPine BESYLATE 5 MG TABLET (FP) PO SCH (10:16)
[2023-02-04] MEDS: FUROSEMIDE 40 MG/4 ML INJECTABLE VIAL IVPUSH SCH (10:16)
[2023-02-04] MEDS: SODIUM ZIRCONIUM CYCLOSILICATE (LOKELMA) 5 GM PACKET PO SCH (10:16)
[2023-02-04] MEDS: cloNIDine HCL 0.1 MG TABLET PO SCH ×2 (10:16→21:13)
[2023-02-04] MEDS: FERROUS SO4 325 MG TABLET (FP) PO SCH (10:16)
[2023-02-04] MEDS ORDERED: HEPARIN NA (PORCINE) 5,000 UNITS/ML 1ML VIAL IVPUSH PRN ×3 (10:35→10:39)
[2023-02-04] MEDS ORDERED: HEPARIN NA (PORCINE) 5,000 UNITS/ML 1ML VIAL IVPUSH ONE (11:30)
[2023-02-04] MEDS ORDERED: HEPARIN - 25,000 UNIT in SODIUM CHLORIDE 495 ML IV SCH (11:45)
[2023-02-04] MEDS: ROSUVASTATIN CA 10 MG TABLET PO SCH (21:13)
[2023-02-04] MEDS: GABAPENTIN 300 MG CAPSULE PO SCH (21:13)
[2023-02-04 23:39] VITALS: BMI 33.7
[2023-02-05] MEDS: SODIUM BICARBONATE 650 MG TABLET PO SCH ×3 (05:34→21:11)
[2023-02-05] MEDS: INSULIN SLIDING SCALE (NOVOLOG) 1 VIAL SQ SCH ×4 (06:29→21:12)
[2023-02-05] MEDS ORDERED: METOPROLOL TARTRATE 50 MG TABLET (FP) PO SCH (10:56)
[2023-02-05] MEDS: amLODIPine BESYLATE 5 MG TABLET (FP) PO SCH (11:01)
[2023-02-05] MEDS: VITAMIN B COMP W-C 1 EA TABLET (NEPHRO-VITE) PO SCH (11:01)
[2023-02-05] MEDS: FUROSEMIDE 40 MG/4 ML INJECTABLE VIAL IVPUSH SCH (11:01)
[2023-02-05] MEDS: FERROUS SO4 325 MG TABLET (FP) PO SCH (11:01)
[2023-02-05] MEDS: cloNIDine HCL 0.1 MG TABLET PO SCH ×2 (11:01→21:11)
[2023-02-05] MEDS: SODIUM ZIRCONIUM CYCLOSILICATE (LOKELMA) 5 GM PACKET PO SCH (11:25)
[2023-02-05] MEDS: METOPROLOL TARTRATE 50 MG TABLET (FP) PO SCH (11:25)
[2023-02-05] MEDS ORDERED: INSULIN (NOVOLOG) ASPART 100 UNITS/ML 10ML VIAL ONE ×2 (12:04→21:07)
[2023-02-05] MEDS ORDERED: BENZOCAINE/MENTH/CETYLPYRD CL 1 EACH LOZENGE MM PRN (19:34)
[2023-02-05] MEDS: GABAPENTIN 300 MG CAPSULE PO SCH (21:11)
[2023-02-05] MEDS: ROSUVASTATIN CA 10 MG TABLET PO SCH (21:11)
[2023-02-05] MEDS: METOPROLOL TARTRATE 25 MG TABLET (FP) PO SCH (21:45)
[2023-02-06] MEDS: SODIUM BICARBONATE 650 MG TABLET PO SCH ×3 (05:40→21:02)
[2023-02-06 07:31] LABS: HEMATOCRIT 26.2 % (32.4-45.2); HEMOGLOBIN 8.7 GM/dL (10.7-15.3); MCH 26.1 pg (25.7-33.7); MCHC 33.1 g/dl (32.0-36.0); MEAN CELL VOLUME 78.9 fl (80-96); PLATELET COUNT 215 10^3/uL (134-434); RBC 3.32 M/mm3 (3.60-5.2)
[2023-02-06 07:33] LABS: INR 1.07 (0.83-1.09); PROTHROMBIN TIME (PATIENT) 12.4 SEC (9.7-13.0)
[2023-02-06 07:46] LABS: CHLORIDE 107 mmol/L (98-107); POTASSIUM 4.2 mmol/L (3.5-5.1); SODIUM 137 mmol/L (136-145)
[2023-02-06 07:48] LABS: CALCIUM 8.4 mg/dL (8.5-10.1)
[2023-02-06 07:49] LABS: ANION GAP 6 mmol/L (4-13); BLOOD UREA NITROGEN 76.9 mg/dL (7-18); CO2 24 mmol/L (21-32); GLUCOSE,RANDOM 118 mg/dL (74-106); MAGNESIUM 2.5 mg/dL (1.8-2.4)
[2023-02-06 07:53] LABS: PHOSPHOROUS 5.7 mg/dL (2.5-4.9)
[2023-02-06 07:58] LABS: CREATININE 7.8 mg/dL (0.55-1.3)
[2023-02-06] MEDS: INSULIN SLIDING SCALE (NOVOLOG) 1 VIAL SQ SCH ×4 (08:52→21:10)
[2023-02-06] MEDS: cloNIDine HCL 0.1 MG TABLET PO SCH ×2 (10:51→21:01)
[2023-02-06] MEDS: FERROUS SO4 325 MG TABLET (FP) PO SCH (10:51)
[2023-02-06] MEDS: VITAMIN B COMP W-C 1 EA TABLET (NEPHRO-VITE) PO SCH (10:51)
[2023-02-06] MEDS: amLODIPine BESYLATE 5 MG TABLET (FP) PO SCH (10:52)
[2023-02-06] MEDS: FUROSEMIDE 40 MG/4 ML INJECTABLE VIAL IVPUSH SCH (10:53)
[2023-02-06] MEDS: SODIUM ZIRCONIUM CYCLOSILICATE (LOKELMA) 5 GM PACKET PO SCH (10:54)
[2023-02-06] MEDS: METOPROLOL TARTRATE 25 MG TABLET (FP) PO SCH (10:55)
[2023-02-06] MEDS ORDERED: SODIUM CHLORIDE 250 ML IV PRN (13:07)
[2023-02-06] MEDS ORDERED: SEVOFLURANE 250 ML BTL ONE (13:31)
[2023-02-06] MEDS ORDERED: HEPARIN NA (PORCINE) 5,000 UNITS/ML 1ML VIAL ONE (13:34)
[2023-02-06] MEDS ORDERED: LIDOCAINE HCL 1%, 10 MG/ML (20ML VIAL) ONE (13:34)
[2023-02-06] MEDS ORDERED: FENTANYL CITRATE/PF 50 MCG/ML VIAL ONE ×2 (13:35→13:58)
[2023-02-06] MEDS ORDERED: MIDAZOLAM HCL 2 MG/2 ML SINGLE DOSE VIAL ONE (13:35)
[2023-02-06] MEDS ORDERED: LIDOCAINE 1% P/F 10 MG/ML VIAL INF ONE (14:24)
[2023-02-06] MEDS ORDERED: HEPARIN NA (PORCINE) PF 1,000 UNITS/ML - 2ML VIAL IVPB ONE (14:26)
[2023-02-06] MEDS: ACETAMINOPHEN 1000 MG/100 ML BAG IVPB PRN (19:43)
[2023-02-06] MEDS: GABAPENTIN 300 MG CAPSULE PO SCH (21:01)
[2023-02-06] MEDS: ROSUVASTATIN CA 10 MG TABLET PO SCH (21:02)
[2023-02-06] MEDS ORDERED: METOPROLOL TARTRATE 25 MG TABLET (FP) PO ONE (22:00)
[2023-02-07] MEDS: ACETAMINOPHEN 1000 MG/100 ML BAG IVPB PRN ×2 (06:08→17:00)
[2023-02-07] MEDS: SODIUM BICARBONATE 650 MG TABLET PO SCH ×3 (06:09→21:49)
[2023-02-07] MEDS: INSULIN SLIDING SCALE (NOVOLOG) 1 VIAL SQ SCH ×4 (07:18→23:49)
[2023-02-07] MEDS ORDERED: EPOETIN ALFA-EPBX 10,000 UNIT/ML VIAL SQ ONE (11:42)
[2023-02-07] MEDS: cloNIDine HCL 0.1 MG TABLET PO SCH ×2 (14:09→21:49)
[2023-02-07] MEDS: FERROUS SO4 325 MG TABLET (FP) PO SCH (14:09)
[2023-02-07] MEDS: amLODIPine BESYLATE 5 MG TABLET (FP) PO SCH (14:09)
[2023-02-07] MEDS: SODIUM ZIRCONIUM CYCLOSILICATE (LOKELMA) 5 GM PACKET PO SCH (14:10)
[2023-02-07] MEDS: VITAMIN B COMP W-C 1 EA TABLET (NEPHRO-VITE) PO SCH (14:10)
[2023-02-07] MEDS: FUROSEMIDE 40 MG/4 ML INJECTABLE VIAL IVPUSH SCH (14:11)
[2023-02-07 18:27] VITALS: RESP 18
[2023-02-07] MEDS: ROSUVASTATIN CA 10 MG TABLET PO SCH (21:49)
[2023-02-07] MEDS: GABAPENTIN 300 MG CAPSULE PO SCH (21:49)
[2023-02-08] MEDS: SODIUM BICARBONATE 650 MG TABLET PO SCH (06:23)
[2023-02-08] MEDS: INSULIN SLIDING SCALE (NOVOLOG) 1 VIAL SQ SCH ×2 (06:26→12:18)
[2023-02-08 06:53] LABS: HEMATOCRIT 26.2 % (32.4-45.2); HEMOGLOBIN 8.6 GM/dL (10.7-15.3); MCH 25.6 pg (25.7-33.7); MCHC 32.6 g/dl (32.0-36.0); MEAN CELL VOLUME 78.5 fl (80-96); PLATELET COUNT 200 10^3/uL (134-434); RBC 3.34 M/mm3 (3.60-5.2); RDW 20.8 % (11.6-15.6); WHITE BLOOD COUNT 5.4 K/mm3 (4.0-10.0)
[2023-02-08] MEDS ORDERED: INSULIN (NOVOLOG) ASPART 100 UNITS/ML 10ML VIAL ONE ×2 (08:09→12:05)
[2023-02-08] MEDS ORDERED: APIXABAN 2.5 MG TABLET PO SCH (10:00)
[2023-02-08] MEDS: FERROUS SO4 325 MG TABLET (FP) PO SCH (10:08)
[2023-02-08] MEDS: cloNIDine HCL 0.1 MG TABLET PO SCH (10:08)
[2023-02-08] MEDS: SODIUM ZIRCONIUM CYCLOSILICATE (LOKELMA) 5 GM PACKET PO SCH (10:08)
[2023-02-08] MEDS: FUROSEMIDE 40 MG/4 ML INJECTABLE VIAL IVPUSH SCH ×2 (10:08→11:37)
[2023-02-08] MEDS: VITAMIN B COMP W-C 1 EA TABLET (NEPHRO-VITE) PO SCH (10:08)
[2023-02-08] MEDS: amLODIPine BESYLATE 5 MG TABLET (FP) PO SCH (10:08)
[2023-02-08 10:36] VITALS: BP 155/66; PULSE 54; TEMP 98
[2023-02-08] MEDS ORDERED: FUROSEMIDE 40 MG TABLET (FP) PO SCH (11:00)
== END 2023-02-08 15:07 | disposition home or self-care (01) | DRG 682 ==
LOC: JER 10:07 → JERBED 16:48 → J4W 21:19
PROVIDERS: ADMIT Internal Medicine; ATTEND Internal Medicine
PROC: 02HV33Z Insertion of Infusion Device into Superior Vena Cava, Percutaneous Approach (ICD-10-PCS; principal; 2023-02-05)
PROC: B518ZZA Fluoroscopy of Superior Vena Cava, Guidance (ICD-10-PCS; 2023-02-05)
PROC: 5A1D70Z Performance of Urinary Filtration, Intermittent, Less than 6 Hours Per Day (ICD-10-PCS; 2023-02-07)
DX: I12.0 Hypertensive chronic kidney disease with stage 5 chronic kidney disease or end stage renal disease (principal); N18.6 End stage renal disease; I48.92 Unspecified atrial flutter; E11.22 Type 2 diabetes mellitus with diabetic chronic kidney disease; E11.65 Type 2 diabetes mellitus with hyperglycemia; E87.70 Fluid overload, unspecified; I48.91 Unspecified atrial fibrillation
CPT/HCPCS: 0241U-QW; 36415; 71045-TC-FY; 74176-TC; 76000-TC-FY; 76705-TC; 80048; 80053; 81003; 82550; 82553; 82803; 82962; 83690; 83735; 84100; 84484; 85025; 85027; 85610; 85730; 86850; 86900; 86901; 87086; 87186; 93005; 93010; 93306-TC; 97116-GP; 97161-GP; 99285-25; C1750; J1644; Q5106

== ENCOUNTER 2023-04-13 03:58 | Day surgery (SDC) | payer OTHER ==
[2023-04-10 09:56] VITALS: BMI 29.8
[2023-04-13] MEDS ORDERED: LIDOCAINE HCL 1%, 10 MG/ML (20ML VIAL) ONE (07:52)
[2023-04-13] MEDS ORDERED: HEPARIN NA (PORCINE) 5,000 UNITS/ML 1ML VIAL ONE ×2 (07:52→09:30)
[2023-04-13] MEDS ORDERED: MIDAZOLAM HCL 2 MG/2 ML SINGLE DOSE VIAL ONE (07:55)
[2023-04-13] MEDS ORDERED: PROPOFOL 20 ML ONE (07:55)
[2023-04-13 08:22] LABS: POTASSIUM 3.8 mmol/L (3.5-5.1)
[2023-04-13] MEDS ORDERED: oxyCODONE HCL 5 MG TABLET PO PRN (08:29)
[2023-04-13] MEDS ORDERED: PROMETHAZINE HCL 25 MG/1 ML VIAL IVPB PRN (08:29)
[2023-04-13] MEDS ORDERED: ONDANSETRON 4 MG/2 ML VIAL IVPUSH PRN (08:29)
[2023-04-13] MEDS ORDERED: ACETAMINOPHEN 1000 MG/100 ML BAG IVPB PRN (08:30)
[2023-04-13] MEDS ORDERED: SODIUM CHLORIDE 1,000 ML IV SCH (08:30)
[2023-04-13] MEDS ORDERED: ceFAZolin SODIUM 1 GM VIAL ONE (09:20)
[2023-04-13] MEDS: HEPARIN NA (PORCINE) 5,000 UNITS/ML 1ML VIAL SQ ONE ×2 (09:31)
[2023-04-13] MEDS: LIDOCAINE HCL 1%, 10 MG/ML (50 mL VIAL) INF ONE ×2 (09:31)
[2023-04-13] MEDS: IOHEXOL 300 MG/ML INFUS..BTL IV ONE (09:31)
[2023-04-13] MEDS ORDERED: PROTAMINE SULFATE 50 MG/5 ML VIAL ONE (09:37)
[2023-04-13 11:51] VITALS: RESP 20
[2023-04-13 16:12] VITALS: BP 114/53; PULSE 60; TEMP 98.1
== END 2023-04-13 14:41 | disposition home or self-care (01) ==
LOC: JASU-SURG 03:58
PROVIDERS: ATTEND Surgery Vascular Surgery
PROC: 057Y3ZZ Dilation of Upper Vein, Percutaneous Approach (ICD-10-PCS; principal; 2023-04-13 09:00)
DX: T82.898A Other specified complication of vascular prosthetic devices, implants and grafts, initial encounter (principal); Y83.2 Surgical operation with anastomosis, bypass or graft as the cause of abnormal reaction of the patient, or of later complication, without mention of misadventure at the time of the procedure; Y92.9 Unspecified place or not applicable; I12.0 Hypertensive chronic kidney disease with stage 5 chronic kidney disease or end stage renal disease; E11.22 Type 2 diabetes mellitus with diabetic chronic kidney disease; N18.6 End stage renal disease; Z99.2 Dependence on renal dialysis
CPT/HCPCS: 36415; 76000-TC-FY; 82947; 84132; 94760; J1644

== ENCOUNTER 2023-06-08 04:20 | Day surgery (SDC) | payer OTHER ==
[2023-06-06 11:13] VITALS: BMI 30.3
[2023-06-08] MEDS ORDERED: ONDANSETRON 4 MG/2 ML VIAL IVPUSH PRN (08:32)
[2023-06-08] MEDS ORDERED: PROMETHAZINE HCL 25 MG/1 ML VIAL IVPB PRN (08:32)
[2023-06-08] MEDS ORDERED: LIDOCAINE HCL 1%, 10 MG/ML (20ML VIAL) ONE (08:33)
[2023-06-08] MEDS ORDERED: HEPARIN NA (PORCINE) 5,000 UNITS/ML 1ML VIAL ONE ×2 (08:34→09:30)
[2023-06-08] MEDS ORDERED: SODIUM CHLORIDE 1,000 ML IV SCH (08:45)
[2023-06-08 08:49] LABS: POTASSIUM 3.9 mmol/L (3.5-5.1)
[2023-06-08 08:51] LABS: ALBUMIN 3.5 g/dl (3.4-5.0); CALCIUM 9.2 mg/dL (8.5-10.1)
[2023-06-08 08:52] LABS: BLOOD UREA NITROGEN 29.7 mg/dL (7-18)
[2023-06-08 08:56] LABS: CREATININE 5.5 mg/dL (0.55-1.3)
[2023-06-08 08:57] LABS: BILIRUBIN,TOTAL 0.5 mg/dL (0.2-1); TOT PROT 6.9 g/dl (6.4-8.2)
[2023-06-08] MEDS ORDERED: PROPOFOL 20 ML ONE (09:00)
[2023-06-08] MEDS ORDERED: FENTANYL CITRATE/PF 50 MCG/ML VIAL ONE ×2 (09:00→09:01)
[2023-06-08] MEDS ORDERED: MIDAZOLAM HCL 2 MG/2 ML SINGLE DOSE VIAL ONE (09:00)
[2023-06-08] MEDS ORDERED: SODIUM CHLORIDE 0.9% P/F 10 ML VIAL IJ ONE (09:01)
[2023-06-08] MEDS ORDERED: LIDOCAINE HCL/PF 2% SDV 5ML VIAL ONE (09:01)
[2023-06-08] MEDS ORDERED: ceFAZolin SODIUM 1 GM VIAL ONE (09:01)
[2023-06-08] MEDS: LIDOCAINE HCL 1%, 10 MG/ML (50 mL VIAL) INF ONE (09:45)
[2023-06-08 11:41] VITALS: RESP 18
[2023-06-08 12:59] VITALS: BP 161/63; PULSE 54; TEMP 97.1
== END 2023-06-08 13:07 | disposition home or self-care (01) ==
LOC: JASU-SURG 04:20
PROVIDERS: ATTEND Thoracic Surgery (Cardiothoracic Vascular Surgery)
PROC: 05763ZZ Dilation of Left Subclavian Vein, Percutaneous Approach (ICD-10-PCS; principal; 2023-06-08 09:00)
DX: T82.858A Stenosis of other vascular prosthetic devices, implants and grafts, initial encounter (principal); I12.0 Hypertensive chronic kidney disease with stage 5 chronic kidney disease or end stage renal disease
CPT/HCPCS: 36415; 76000-TC-FY; 80053; 82962; 94760; J1644